=== PATIENT | female | born 1990 | race Caucasian/White ===

== ENCOUNTER 2023-12-18 13:00 | Inpatient (IN) | payer OTHER ==
[2023-12-23 11:05] VITALS: BMI 32.8
[2024-01-08] MEDS ORDERED: HEPARIN NA (PORCINE) 5,000 UNITS/ML 1ML VIAL ONE (10:28)
[2024-01-08] MEDS ORDERED: PROPOFOL 20 ML ONE (10:42)
[2024-01-08] MEDS ORDERED: ROCURONIUM BROMIDE 50 MG/5 ML SYRINGE ONE (10:43)
[2024-01-08] MEDS ORDERED: MIDAZOLAM HCL 2 MG/2 ML SINGLE DOSE VIAL ONE (10:43)
[2024-01-08] MEDS ORDERED: ACETAMINOPHEN INJECTION 100 ML ONE (10:48)
[2024-01-08] MEDS: ceFAZolin SODIUM 1 GM VIAL IVPB ONE (11:37)
[2024-01-08] MEDS ORDERED: PROPOFOL 40 ML ONE (12:05)
[2024-01-08] MEDS ORDERED: TRANEXAMIC ACID 1000 MG/10 ML VIAL ONE ×2 (12:15→13:29)
[2024-01-08] MEDS ORDERED: ONDANSETRON 4 MG/2 ML VIAL ONE (13:52)
[2024-01-08] MEDS ORDERED: DEXAMETHASONE SOD PHOSPHATE 4 MG/1 ML VIAL ONE (13:52)
[2024-01-08] MEDS ORDERED: SUGAMMADEX SODIUM 200 MG/2 ML VIAL ONE (13:56)
[2024-01-08] MEDS ORDERED: oxyCODONE HCL 5 MG TABLET PO PRN ×2 (14:16)
[2024-01-08] MEDS ORDERED: ONDANSETRON 4 MG/2 ML VIAL IVPUSH PRN ×3 (14:16→14:33)
[2024-01-08] MEDS ORDERED: DOCUSATE SODIUM 100 MG CAPSULE (FP) PO PRN (14:16)
[2024-01-08] MEDS ORDERED: NALOXONE HCL 0.4 MG/ML VIAL IVPUSH PRN (14:33)
[2024-01-08] MEDS ORDERED: KETOROLAC TROMETHAMINE 30 MG/1 ML VIAL ONE (16:47)
[2024-01-08] MEDS: KETOROLAC TROMETHAMINE 30 MG/1 ML VIAL IVPUSH ONE (16:49)
[2024-01-08] MEDS: LACTATED RINGERS SOLUTION 1,000 ML IV SCH (16:52)
[2024-01-08] MEDS: morphine SULFATE/PF 1 MG/2 ML (2cc Syringe - QUVA) IT ONE (16:58)
[2024-01-08] MEDS: LORATADINE 10 MG TABLET PO ONE (17:16)
[2024-01-08] MEDS: CEFAZOLIN 1 GM in DEXTROSE 5%-WATER - 50 ML IVPB SCH (19:06)
[2024-01-08] MEDS: ACETAMINOPHEN 325 MG TABLET (FP) PO SCH ×2 (20:12→20:24)
[2024-01-09] MEDS: IBUPROFEN 800 MG/8 ML IJ IVPB PRN (05:46)
[2024-01-09 08:18] LABS: HEMATOCRIT 27.7 % (32.4-45.2); MCH 27.7 pg (25.7-33.7); MCHC 32.5 g/dl (32.0-36.0); MEAN CELL VOLUME 85.1 fl (80-96); MEAN PLT VOLUME 6.9 fl (7.5-11.1); PLATELET COUNT 315 10^3/uL (134-434); RBC 3.26 M/mm3 (3.60-5.2); RDW 14.1 % (11.6-15.6); WHITE BLOOD COUNT 15.4 K/mm3 (4.0-10.0)
[2024-01-09] MEDS: CHOLECALCIFEROL (VIT D3) 5000 UNITS (125 MCG) CAP PO SCH (09:47)
[2024-01-09] MEDS: CYANOCOBALAMIN 1,000 MCG TABLET (FP) PO SCH (09:47)
[2024-01-09] MEDS: ASCORBIC ACID 500 MG TABLET (FP) PO SCH (09:47)
[2024-01-09] MEDS: SIMETHICONE 80 MG TAB.CHEW (FP) PO PRN (22:03)
[2024-01-09] MEDS: BISACODYL 5 MG TABLET.DR (FP) PO PRN (22:03)
[2024-01-09] MEDS: oxyCODONE HCL 10 MG SUSTAINED ACTING TABLET PO SCH (22:03)
[2024-01-10 09:34] VITALS: RESP 20
[2024-01-10 12:01] LABS: BASO % 0.6 % (0-2.0); HEMATOCRIT 28.8 % (32.4-45.2); HEMOGLOBIN 9.2 GM/dL (10.7-15.3); LYMPH % 12.4 % (8-40); MCH 27.4 pg (25.7-33.7); MCHC 32.1 g/dl (32.0-36.0); MEAN CELL VOLUME 85.2 fl (80-96); MEAN PLT VOLUME 7.1 fl (7.5-11.1); PLATELET COUNT 359 10^3/uL (134-434); RBC 3.38 M/mm3 (3.60-5.2); RDW 14.3 % (11.6-15.6); WHITE BLOOD COUNT 13.5 K/mm3 (4.0-10.0)
[2024-01-10 12:05] VITALS: BP 124/72; PULSE 104; TEMP 98
== END 2024-01-10 17:05 | disposition home or self-care (01) | DRG 519 ==
LOC: J2C 01-08 04:03 → J3W 01-08 18:16
PROVIDERS: ADMIT Specialist; ATTEND Specialist
PROC: 0UB90ZZ Excision of Uterus, Open Approach (ICD-10-PCS; principal; 2024-01-08 10:45)
DX: D25.9 Leiomyoma of uterus, unspecified (principal); R00.0 Tachycardia, unspecified; D64.9 Anemia, unspecified
CPT/HCPCS: 36415; 81025; 85025; 85027; 86850; 86900; 86901; 88305-TC; 93005; 93010; 94760; J0131; J1644

== ENCOUNTER 2024-01-13 09:52 | Emergency (ER) | payer OTHER ==
[2024-01-13 09:57] VITALS: BP 132/84; PULSE 67; RESP 18; TEMP 98.3; BMI 32.8
[2024-01-13] MEDS ORDERED: METHOCARBAMOL 500 MG TABLET ONE (12:17)
[2024-01-13] MEDS: METHOCARBAMOL 500 MG TABLET PO ONE (12:28)
[2024-01-13] MEDS ORDERED: KETOROLAC TROMETHAMINE 15 MG/ML VIAL ONE (12:30)
[2024-01-13 12:35] LABS: BASO % 0.9 % (0-2.0); HEMOGLOBIN 8.5 GM/dL (10.7-15.3); LYMPH % 22.9 % (8-40); MCH 27.6 pg (25.7-33.7); MCHC 32.8 g/dl (32.0-36.0); MEAN CELL VOLUME 84.1 fl (80-96); MEAN PLT VOLUME 6.3 fl (7.5-11.1); MONO % 8.7 % (3.8-10.2); NEUT % 64.5 % (42.8-82.8); PLATELET COUNT 407 10^3/uL (134-434); RBC 3.09 M/mm3 (3.60-5.2); RDW 14.3 % (11.6-15.6); WHITE BLOOD COUNT 6.6 K/mm3 (4.0-10.0)
[2024-01-13] MEDS: KETOROLAC TROMETHAMINE 15 MG/ML VIAL IVPUSH ONE (12:36)
[2024-01-13 13:02] LABS: POTASSIUM 4.2 mmol/L (3.5-5.1)
[2024-01-13 13:03] LABS: CALCIUM 8.9 mg/dL (8.5-10.1)
[2024-01-13 13:04] LABS: ALBUMIN 3.2 g/dl (3.4-5.0); BLOOD UREA NITROGEN 9.6 mg/dL (7-18); MAGNESIUM 1.9 mg/dL (1.8-2.4)
[2024-01-13 13:07] LABS: CREATININE 0.6 mg/dL (0.55-1.3)
[2024-01-13 13:08] LABS: BILIRUBIN,TOTAL 0.3 mg/dL (0.2-1)
[2024-01-13 13:09] LABS: TOT PROT 6.4 g/dl (6.4-8.2)
== END 2024-01-13 16:20 | disposition home or self-care (01) ==
LOC: JER 09:52
PROC: 3E0333Z Introduction of Anti-inflammatory into Peripheral Vein, Percutaneous Approach (ICD-10-PCS; principal; 2024-01-13)
DX: M54.2 Cervicalgia (principal); R51.9 Headache, unspecified
CPT/HCPCS: 36415; 70491-TC; 71046-TC-FY; 80053; 83735; 84439; 84443; 84484; 84703; 85025; 93005; 93010; 99285-25; Q9967